=== PATIENT | male | born 1945 | race Caucasian/White ===

== ENCOUNTER 2017-05-23 21:44 | Observation (INO) | payer MEDICARE ==
[~2017-05-23] VITALS: Ht 172.7 cm; Wt 97.3 kg
[2017-05-23 21:55] VITALS: PULSE 91; RESP 16; TEMP 97.8; O2SAT 99
--- NOTE | 2017-05-23 21:59 | PD ---
HPI Chief Complaint: Altered Mental Status Time Seen by Provider: 21:59 Travel History International Travel<30 days: No Contact w/Intl Traveler<30days: No Traveled to known affect area: No History of Present Illness HPI 71-year-old male with history of remote CVA, diabetes, presents to emergency department for evaluation of altered mental status. Per his , the patient had a normal day. The right eating dinner and the patient had a large amount of seafood to eat. He has never had any sensitivities in the past. He took his no full length, metformin, glipizide prior to dinner as he always does. She states around 8 PM, the patient began acting very bizarre. He then progressed and began having jerking-like movements with his head. She states patient has never acted like this before. Denies any alcohol or illicit drug use. No other symptoms reported this time. PFSH Past Medical History Cerebrovascular Accident: Yes Diabetes: Yes Social History Tobacco Use: No Allergies-Medications (Allergen,Severity, Reaction): Coded Allergies: Cipro (Verified Allergy, Unknown, 05/23/17) Levaquin (Verified Allergy, Unknown, 05/23/17) Reported Meds & Prescriptions Reported Meds & Active Scripts Active Reported Cilostazol 50 Mg Tab 50 Mg PO DAILY Aspirin 81 Mg Chew 81 Mg CHEW DAILY Novolin R Inj (Insulin Human Regular) 1,000 Unit/10 Ml Vial 33 Units SQ BID Furosemide 20 Mg Tab 20 Mg PO DAILY PRN Omeprazole 20 Mg Tab 20 Mg PO DAILY Metformin (Metformin HCl) 1,000 Mg Tab 1,000 Mg PO BIDPC With meals Glipizide 5 Mg Tab 5 Mg PO BIDAC Take 30 minutes before a meal Gabapentin 300 Mg Cap 300 Mg PO BID Metoprolol Tartrate 25 Mg Tab 12.5 Mg PO BID Atorvastatin (Atorvastatin Calcium) 20 Mg Tab 20 Mg PO HS Terazosin (Terazosin HCl) 2 Mg Cap 2 Mg PO HS Review of Systems ROS Limitations: Altered Mental Status Except as stated in HPI: all other systems reviewed are Neg Physical Exam Exam Limitations: Altered Mental Status Narrative GENERAL: Well-nourished elderly male patient, uncooperative, disoriented SKIN: Focused skin assessment warm, diaphoretic HEAD: Atraumatic. Normocephalic. EYES: Pupils equal and round. No scleral icterus. No injection or drainage. ENT: No nasal bleeding or discharge. Mucous membranes pink and moist. NECK: Trachea midline. No JVD. CARDIOVASCULAR: Regular rate and rhythm. No murmur appreciated. RESPIRATORY: No accessory muscle use. Clear to auscultation. Breath sounds equal bilaterally. GASTROINTESTINAL: Abdomen soft, non-tender, nondistended. Hepatic and splenic margins not palpable. MUSCULOSKELETAL: No obvious deformities. No clubbing. No cyanosis. No edema. NEUROLOGICAL: Awake. Unable to assess cranial nerves. Patient is moving all extremities in jerk-like motion. Data Data Last Documented VS Vital Signs Date Time Temp Pulse Resp B/P Pulse Ox O2 Delivery O2 Flow Rate FiO2 05/23/17 21:55 97.8 91 16 99 Orders Electrocardiogram (05/23/17 21:53) Basic Metabolic Panel (Bmp) (05/23/17 21:53) Complete Blood Count With Diff (05/23/17 21:53) Prothrombin Time / Inr (Pt) (05/23/17 21:53) Act Partial Throm Time (Ptt) (05/23/17 21:53) Thyroid Stimulating Hormone (05/23/17 21:53) Urinalysis - C+S If Indicated (05/23/17 21:53) Chest, Single Ap (05/23/17 21:53) Ct Brain W/O Iv Contrast(Rout) (05/23/17 21:53) Blood Glucose (05/23/17 21:53) Ecg Monitoring (05/23/17 21:53) Iv Access Insert/Monitor (05/23/17 21:53) Oximetry (05/23/17 21:53) Sodium Chloride 0.9% Flush (Ns Flush) (05/23/17 22:00) Drug Screen, Random Urine (05/23/17 21:53) Alcohol (Ethanol) (05/23/17 21:53) Blood Glucose (05/23/17 21:56) Dextrose 50% In Yung (Syr) Inj (D50w (Syr (05/23/17 22:00) Dextrose 50% In Yung (Syr) Inj (D50w (Syr (05/23/17 22:00) MDM Medical Decision Making Medical Screen Exam Complete: Yes Emergency Medical Condition: Yes Medical Record Reviewed: Yes Differential Diagnosis ICH versus electrolyte abnormality versus seizure versus sepsis Narrative Course 71-year-old male presents to emergency department for evaluation of altered mental status. Blood glucose was initially noted at 35. My attending physician , Dr. Moeller is at bedside. Patient is given to complete vials of D50. Within minutes after administration, patient begins to be more oriented. He is able to tell us his name. He is following simple commands. Last Impressions Head CT 05/23/172152 Signed Impressions: Service Date/Time: Tuesday, May 23, 2017 22:14 - CONCLUSION: 1. Focal area of decreased attenuation in the right parietal lobe which is nonspecific. This could be related to remote trauma. Edema or mass is less likely. 2. Opacification of mastoid air cells bilaterally right greater than left. 3. Small paul hole in right parietal bone. 4. Comparison with any old outside studies would be helpful. Sebastian Ortega MD Chest X-Ray 05/23/172152 Signed Impressions: Service Date/Time: Tuesday, May 23, 2017 21:54 - CONCLUSION: No acute disease. Sebastian Ortega MD Lab work is still pending. Patient will be observed for at least the next 3 hours with serial blood glucose checks. 2300 patient is signed out to my attending physician Dr. Moeller. She will assume care at this time. Diagnosis Primary Impression: Altered mental status Qualified Code: R41.82 - Altered mental status, unspecified altered mental status type Additional Impression: Hypoglycemia Condition: Stable Connie Miranda SOTO May 23, 2017 21:59
[2017-05-23] MEDS ORDERED: DEXTROSE 50% IN WATER 50 ML SYRINGE IV ONE (22:00)
[2017-05-23] MEDS ORDERED: SODIUM CHLORIDE 0.9% FLUSH 5 ML FLUSH IV FLUSH PRN (22:00)
[2017-05-23] MEDS ORDERED: GLIP5TAB8 PO (22:15)
[2017-05-23] MEDS ORDERED: TERA2CAP3 PO (22:15)
[2017-05-23] MEDS ORDERED: METF1000 PO (22:15)
[2017-05-23] MEDS ORDERED: OMEP20TA PO (22:15)
[2017-05-23] MEDS ORDERED: METO25TA3 PO (22:15)
[2017-05-23] MEDS ORDERED: NOVORP2 SQ (22:15)
[2017-05-23] MEDS ORDERED: ATOR20TA15 PO (22:15)
[2017-05-23] MEDS ORDERED: CILO50TA PO (22:15)
[2017-05-23] MEDS ORDERED: GABA300C5 PO (22:15)
[2017-05-23] MEDS ORDERED: FURO20TA PO (22:15)
[2017-05-23] MEDS ORDERED: ASPI81CH CHEW (22:15)
--- NOTE | 2017-05-23 22:16 | PD ---
Physical Exam Date Seen by Provider: May 23, 2017 Time Seen by Provider: 22:13 Narrative 71-year-old male was brought in by his to the emergency room for altered mental status. He was brought in emergently to the room. As per the she saw him normal up until 8 PM when they were eating dinner. And then he started to act very bizarre. Here he was not making any sense and not answering questions appropriately. He was kind of ataxic as he was being moved up from the wheelchair into the stretcher. It almost seems like he was starting to have a seizure. He was diaphoretic. Patient does have history of diabetes and took all his insulin shots before going for the dinner. As per the he ate quite a bit of shellfish which she has done in the past. Bedside sugar was 35. I ordered 2 A of D50 which were emergently given and as soon as the 2 g finished patient was fully conscious and answering questions appropriately. I will just told that the repeat blood sugar after 20 minutes was 230. Patient is getting rest of his workup including CAT scan for altered mental status. The nurse practitioner is following up the case and I'm supervising her. Data Data Last Documented VS Vital Signs Date Time Temp Pulse Resp B/P Pulse Ox O2 Delivery O2 Flow Rate FiO2 05/23/17 23:23 87 16 113/75 94 Nasal Cannula 2 05/23/17 21:55 97.8 Orders Electrocardiogram (05/23/17 21:53) Basic Metabolic Panel (Bmp) (05/23/17 21:53) Complete Blood Count With Diff (05/23/17 21:53) Prothrombin Time / Inr (Pt) (05/23/17 21:53) Act Partial Throm Time (Ptt) (05/23/17 21:53) Thyroid Stimulating Hormone (05/23/17 21:53) Urinalysis - C+S If Indicated (05/23/17 21:53) Chest, Single Ap (05/23/17 21:53) Ct Brain W/O Iv Contrast(Rout) (05/23/17 21:53) Blood Glucose (05/23/17 21:53) Ecg Monitoring (05/23/17 21:53) Iv Access Insert/Monitor (05/23/17 21:53) Oximetry (05/23/17 21:53) Sodium Chloride 0.9% Flush (Ns Flush) (05/23/17 22:00) Drug Screen, Random Urine (05/23/17 21:53) Alcohol (Ethanol) (05/23/17 21:53) Blood Glucose (05/23/17 21:56) Dextrose 50% In Yung (Syr) Inj (D50w (Syr (05/23/17 22:00) Dextrose 50% In Yung (Syr) Inj (D50w (Syr (05/23/17 22:00) Protein Corrected Calcium(Pcc) (05/23/17 22:30) Potassium Chloride (Kcl) (05/23/17 23:15) Urine Culture (05/23/17 23:10) Ceftriaxone Inj (Rocephin Inj) (05/24/17 00:30) Blood Culture (05/24/17 00:20) Lactic Acid (05/24/17 00:20) Sodium Chlor 0.9% 1000 Ml Inj (Ns 1000 M (05/24/17 00:30) Potassium Chlor 20 Meq Premix (Kcl 20 Me (05/24/17 00:30) Potassium Chloride (Kcl) (05/24/17 00:30) Calcium Gluconate Inj (Calcium Gluconate (05/24/17 00:30) Magnesium (Mg) (05/24/17 00:20) Magnesium Oxide (Mag-Ox) (05/24/17 00:30) Calcium Carbonate Chew (Tums Chew) (05/24/17 00:30) Admit Order (Ed Use Only) (05/24/17 00:32) Labs Laboratory Tests Test 05/23/17 05/23/17 05/24/17 22:30 23:10 00:30 Prothrombin Time 10.5 SEC Prothromb Time International 1.0 RATIO Ratio Activated Partial 25.9 SEC Thromboplast Time Sodium Level 144 MEQ/L Potassium Level 2.7 MEQ/L Chloride Level 115 MEQ/L Carbon Dioxide Level 19.7 MEQ/L Anion Gap 9 MEQ/L Blood Urea Nitrogen 19 MG/DL Creatinine 1.24 MG/DL Estimat Glomerular Filtration 58 ML/MIN Rate Random Glucose 262 MG/DL Calcium Level 6.1 MG/DL Protein Corrected Calcium 7.2 MG/DL Total Protein 4.7 GM/DL Thyroid Stimulating Hormone 1.240 uIU/ML 3rd Gen Ethyl Alcohol Level LESS THAN 3 MG/DL Hemoglobin A1c 7.0 % Magnesium Level 1.3 MG/DL White Blood Count 10.2 TH/MM3 Red Blood Count 4.98 MIL/MM3 Hemoglobin 14.1 GM/DL Hematocrit 42.2 % Mean Corpuscular Volume 84.8 FL Mean Corpuscular Hemoglobin 28.3 PG Mean Corpuscular Hemoglobin 33.4 % Concent Red Cell Distribution Width 13.7 % Platelet Count 158 TH/MM3 Mean Platelet Volume 9.5 FL Neutrophils (%) (Auto) 51.1 % Lymphocytes (%) (Auto) 30.0 % Monocytes (%) (Auto) 8.8 % Eosinophils (%) (Auto) 9.5 % Basophils (%) (Auto) 0.6 % Neutrophils # (Auto) 5.2 TH/MM3 Lymphocytes # (Auto) 3.0 TH/MM3 Monocytes # (Auto) 0.9 TH/MM3 Eosinophils # (Auto) 1.0 TH/MM3 Basophils # (Auto) 0.1 TH/MM3 CBC Comment DIFF FINAL Differential Comment Urine Opiates Screen NEG Urine Barbiturates Screen NEG Urine Amphetamines Screen NEG Urine Benzodiazepines Screen NEG Urine Cocaine Screen NEG Urine Cannabinoids Screen NEG Urine Color YELLOW Urine Turbidity HAZY Urine pH 5.0 Urine Specific [place] 1.021 Urine Protein TRACE mg/dL Urine Glucose (UA) 1000 mg/dL Urine Ketones NEG mg/dL Urine Occult Blood SMALL Urine Nitrite NEG Urine Bilirubin NEG Urine Urobilinogen LESS THAN 2.0 MG/DL Urine Leukocyte Esterase LARGE Urine RBC 6 /hpf Urine WBC 121 /hpf Urine WBC Clumps RARE Urine Squamous Epithelial <1 /hpf Cells Urine Bacteria RARE /hpf Microscopic Urinalysis Comment CATH-CULTURE IND Lactic Acid Level 1.7 mmol/L [facility] Supervised Visit with LINDSEY: Yes Narrative Course 12:33 AM subsequent blood sugars have remained above 150. However blood test results came back and his potassium and calcium were critically low. I have ordered for placement. But given this scenario along with his UA strongly positive for UTI I would like to bring this patient in at least for observation. I have ordered a second liter of IV fluid bolus and IV Rocephin. I spoke with the hospitalist was accepted the case. Critical Care Narrative Aggregate critical care time was 45 minutes. Time to perform other separately billable procedures was not included in the critical care time. My time did not include minutes spent treating any other patients simultaneously or on activities that did not directly contribute to the patient's treatment. The services I provided to this patient were to treat and/or prevent clinically significant deterioration that could result in: Altered mental status, severe hypo-glycemia, severe hypocalcemia, hypokalemia I provided critical care services requiring my management, as noted below: Chart data review, documentation time, medication orders and management, vital sign assessments/reviewing monitor data, ordering and reviewing lab tests, ordering and interpreting/reviewing x-rays and diagnostic studies, care of the patient and discussion of the patient with the admitting physicians. Diagnosis Primary Impression: Altered mental status Qualified Code: R41.82 - Altered mental status, unspecified altered mental status type Additional Impressions: Hypoglycemia Hypocalcemia Hypokalemia UTI (urinary tract infection) Qualified Code: N39.0 - Urinary tract infection without hematuria, site unspecified Admitting Information Admitting Physician Requests: Observation Scripts Insulin Human Regular Inj (Novolin R Inj)1,000 Unit/10 Ml Vial15 Units SQ BID # 1 INJECTION Ref 0 Prov:Angelica Murray PA-C 05/24/17 Glucocom Test Strips 1 Alison Alison #1 Ea .route As Directed Prov:Angelica Murray PA-C 05/24/17 Blood Glucose Monitoring W/Device (Glucocom Blood Glucose Mo W/Device)1 Kit Kit #1 Kit .route As Directed Prov:Angelica Murray PA-C 05/24/17 Sulfamethoxazole-Trimethoprim (Bactrim DS)800-160 Mg Tab1 Tab PO BID #14 TAB Ref 0 Prov:Angelica Murray PA-C 05/24/17 Gladis Moeller MD May 23, 2017 22:16
--- NOTE | 2017-05-23 22:26 | RADRPT ---
EXAM DATE/TIME: 05/23/2017 21:54 [facility] COMPARISON: No previous studies available for comparison. INDICATIONS : Syncopal episode today. Possible low blood sugar. MEDICAL HISTORY : Diabetes mellitus type II. Hypertension SURGICAL HISTORY : Cardiac stent. ENCOUNTER: Initial ACUITY: 1 day PAIN SCORE: 0/10 LOCATION: Bilateral chest FINDINGS: A single view of the chest demonstrates the lungs to be symmetrically aerated without evidence of mas s, infiltrate or effusion. The cardiomediastinal contours are unremarkable. Osseous structures are intact.CONCLUSION: No acute disease. Sebastian Ortega MD on May 23, 2017 at 22:24 Board Certified Radiologist. This report was verified electronically.
--- NOTE | 2017-05-23 22:30 | RADRPT ---
EXAM DATE/TIME: 05/23/2017 22:14 [facility] COMPARISON: No previous studies available for comparison. INDICATIONS : Altered mental status, diaphoretic. RADIATION DOSE: 39.39 CTDIvol (mGy) MEDICAL HISTORY : Bladder cancer. Subdural bleed. Diabetes. SURGICAL HISTORY : Cardiac stent. Bladder surgery. ENCOUNTER: Initial ACUITY: 1 day PAIN SCALE: 0/10 LOCATION: cranial TECHNIQUE: Multiple contiguous axial images were obtained of the head. Using automated exposure control and adj ustment of the mA and/or kV according to patient size, radiation dose was kept as low as reasonably a chievable to obtain optimal diagnostic quality images. DICOM format image data is available electro nically for review and comparison. FINDINGS: CEREBRUM: The ventricles are normal for age. No evidence of midline shift, mass lesion, hemorrhage or acute in farction. There is a subtle focal area of decreased attenuation in the right parietal lobe measuring approximately 1.5 cm in diameter. No extra-axial fluid collections are seen. POSTERIOR FOSSA: The cerebellum and brainstem are intact. The 4th ventricle is midline. The cerebellopontine angle i s unremarkable. EXTRACRANIAL: The visualized portion of the orbits is intact. There is opacification of the mastoid air cells bilat erally right greater than left. SKULL: The calvaria is intact. No evidence of skull fracture. Postsurgical changes are noted with paul hole in the right parietal lobe. CONCLUSION: 1. Focal area of decreased attenuation in the right parietal lobe which is nonspecific. This could be related to remote trauma. Edema or mass is less likely. 2. Opacification of mastoid air cells bilaterally right greater than left. 3. Small paul hole in right parietal bone. 4. Comparison with any old outside studies would be helpful. Sebastian Ortega MD on May 23, 2017 at 22:25 Board Certified Radiologist. This report was verified electronically.
[2017-05-23 23:09] LABS: AUTOMATED NEUTROPHIL # 5.2 TH/MM3 (1.8-7.7); BASOPHIL # 0.1 TH/MM3 (0-0.2); BASOPHIL % 0.6 % (0.0-2.0); EOSINOPHIL % 9.5 % (0.0-4.0); HEMATOCRIT 42.2 % (39.0-51.0); HEMO FLAGS DIFF FINAL; MEAN CELL VOLUME 84.8 FL (80.0-100.0); MEAN CORPUSCULAR HEMOGLOBIN 28.3 PG (27.0-34.0); MEAN CORPUSCULAR HGB CONC 33.4 % (32.0-36.0); MONO % 8.8 % (0.0-8.0); NEUT % 51.1 % (16.0-70.0); PLATELET COUNT 158 TH/MM3 (150-450); RED BLOOD COUNT 4.98 MIL/MM3 (4.50-5.90); RED CELL DISTRIBUTION WIDTH 13.7 % (11.6-17.2); WHITE BLOOD COUNT 10.2 TH/MM3 (4.0-11.0)
[2017-05-23 23:10] LABS: APTT (PATIENT) 25.9 SEC (24.3-30.1); PROTHROMBIN TIME - PATIENT 10.5 SEC (9.8-11.6)
[2017-05-23 23:13] LABS: ANION GAP 9 MEQ/L (5-15); BICARBONATE 19.7 MEQ/L (21.0-32.0); BLOOD UREA NITROGEN 19 MG/DL (7-18); CHLORIDE 115 MEQ/L (98-107); GLOMERULAR FILTRATION RATE 58 ML/MIN (>89); SODIUM (NA) 144 MEQ/L (136-145)
[2017-05-23 23:15] LABS: POTASSIUM 2.7 MEQ/L (3.5-5.1)
[2017-05-23] MEDS ORDERED: POTASSIUM CHLORIDE 10 MEQ CONTROLLED RELEASE TAB PO ONE (23:15)
[2017-05-23 23:23] VITALS: BP 113/75; PULSE 87; RESP 16; O2SAT 94
[2017-05-23 23:31] LABS: CALCIUM-PROTEIN CORRECTED 7.2 MG/DL (8.5-10.1)
[2017-05-24 00:03] LABS: AMPHETAMINE, URINE NEG (NEG); BACTERIA, URINE RARE /hpf; BARBITURATES, URINE NEG (NEG); BLOOD, URINE SMALL (NEG); COCAINE, URINE NEG (NEG); COMMENT (UR) CATH-CULTURE IND; CULTURE IF INDICATED CATH CULTURE IND; GLUCOSE,URINE 1000 mg/dL (NEG); KETONE, URINE NEG (NEG); NITRITE,URINE NEG (NEG); SQUAMOUS EPITHELIAL CELL URINE <1 /hpf (0-5); URINE COLOR YELLOW (YELLW/STRAW)
[2017-05-24] MEDS ORDERED: SODIUM CHLOR 0.9% 1000 ML INJ 1,000 ML IV ONE (00:30)
[2017-05-24] MEDS ORDERED: CALCIUM CARBONATE 500 MG CHEWABLE TAB CHEW ONE (00:30)
[2017-05-24] MEDS ORDERED: POTASSIUM CHLOR 20 MEQ PREMIX 100 ML IV ONE (00:30)
[2017-05-24] MEDS ORDERED: cefTRIAXone INJ 1,000 MG in SODIUM CHLORIDE 0.9% INJ 100 ML IV ONE (00:30)
[2017-05-24] MEDS ORDERED: POTASSIUM CHLORIDE 20 MEQ CONTROLLED RELEASE TAB PO ONE (00:30)
[2017-05-24] MEDS ORDERED: CALCIUM GLUCONATE INJ 1 GM in SODIUM CHLORIDE 0.9% INJ 90 ML IV ONE (00:30)
[2017-05-24] MEDS ORDERED: MAGNESIUM OXIDE 400 MG TAB PO ONE ×2 (00:30→08:00)
[2017-05-24] MEDS ORDERED: BISACODYL 10 MG SUPP RECTAL PRN (00:45)
[2017-05-24] MEDS ORDERED: SENNOSIDES 8.6 MG TAB PO PRN (00:45)
[2017-05-24] MEDS ORDERED: GLUCAGON 1 MG/ML VIAL OTHER PRN (00:45)
[2017-05-24] MEDS ORDERED: MAGNESIUM HYDROXIDE SUSP 30 ML CUP PO PRN (00:45)
[2017-05-24] MEDS ORDERED: LACTULOSE SYRUP 20 GM/30 ML CUP PO PRN (00:45)
[2017-05-24] MEDS ORDERED: NALOXONE HCL 0.4 MG/ML AMP IV PRN (00:45)
[2017-05-24] MEDS ORDERED: DEXTROSE 50% IN WATER 50 ML VIAL(D50) IV PRN (00:45)
--- NOTE | 2017-05-24 00:52 | HHI.HP ---
[facility] Admission Diagnosis hypoglycemia, AMS, hypocalcemia, hypokalemia Diagnoses: Chief Complaint: hypoglycemia Travel History International Travel<30 Days: No Contact w/Intl Traveler <30 Da: No Traveled to Known Affected Are: No History of Present Illness Written by SOTO Gaxiola acting as scribe for Dr. Villalobos] on 05/24/17 at 00:50. 71 y/o male with a history of subdural hematoma, bladder cancer dyslipidemia, neuropathy, and DM was brought to the ED by family for having abnormal behavior. Patient states he drove from [place] today and didn't eat much, he had some peanuts because he felt his sugar was low. Then he ate dinner but still felt weak and according to the when they got home the patient begin to act weird and some crazy behavior. In the ED blood sugar was found to be 35, 2 amps of d5 were given. Patient states he did remember having trouble reading his phone today, but does not remember being brought to the hospital. He denies any double vision. Denies any chest pain, sob, fever or chills. Review of Systems Constitutional: DENIES: Fever, Chills Respiratory: DENIES: Cough, Sputum production, Shortness of breath Cardiovascular: DENIES: Chest pain, Lower Extremity Edema Gastrointestinal: DENIES: Nausea, Vomiting Genitourinary: DENIES: Hematuria, Dysuria Musculoskeletal: DENIES: Back pain, Neck pain Integumentary: DENIES: Rash Hematologic/lymphatic: DENIES: Lymphadenopathy Immunologic/allergic: DENIES: Urticaria Neurologic: COMPLAINS OF: Headache Past Family Social History Past Medical History DM Bladder cancer reoccurring Subdural hematoma 2015 HTN Dyslipidemia neuropathy Past Surgical History Cardiac stents Reported Medications Reported Meds & Active Scripts Active Reported Cilostazol 50 Mg Tab 50 Mg PO DAILY Aspirin 81 Mg Chew 81 Mg CHEW DAILY Novolin R Inj (Insulin Human Regular) 1,000 Unit/10 Ml Vial 33 Units SQ BID Furosemide 20 Mg Tab 20 Mg PO DAILY PRN Omeprazole 20 Mg Tab 20 Mg PO DAILY Metformin (Metformin HCl) 1,000 Mg Tab 1,000 Mg PO BIDPC With meals Glipizide 5 Mg Tab 5 Mg PO BIDAC Take 30 minutes before a meal Gabapentin 300 Mg Cap 300 Mg PO BID Metoprolol Tartrate 25 Mg Tab 12.5 Mg PO BID Atorvastatin (Atorvastatin Calcium) 20 Mg Tab 20 Mg PO HS Terazosin (Terazosin HCl) 2 Mg Cap 2 Mg PO HS Allergies: Coded Allergies: Cipro (Verified Allergy, Unknown, 05/23/17) Levaquin (Verified Allergy, Unknown, 05/23/17) Active Ordered Medications Current Medications Medications (Trade) Dose Ordered Sig/Norberto Route Start Time Stop Time Status Last Admin IV Flush 2 ml 2 ml UNSCH PRN IV FLUSH 05/23/17 22:00 05/23/17 22:07 Ceftriaxone Sodium 1000 mg/ Sodium Chloride 100 ml @ 200 mls/hr ONCE ONCE IV 05/24/17 00:30 05/24/17 00:59 Sodium Chloride 1,000 ml @ 999 mls/hr BOLUS ONCE IV 05/24/17 00:30 05/24/17 01:30 Potassium Chloride 100 ml @ 50 mls/hr ONCE ONCE IV 05/24/17 00:30 05/24/17 02:29 Calcium Gluconate 1 gm/Sodium Chloride 100 ml @ 100 mls/hr ONCE ONCE IV 05/24/17 00:30 05/24/17 01:29 (D5-1/2 NS + KCl 20 Meq Inj) 1,000 ml @ 100 mls/hr Q10H IV 05/24/17 03:33 (Narcan Inj) 0.4 mg UNSCH PRN IV 05/24/17 00:45 (Kristal-Colace) 1 tab BID PO 05/24/17 09:00 (Milk Of Magnesia Liq) 30 ml Q12H PRN PO 05/24/17 00:45 (Senokot) 17.2 mg Q12H PRN PO 05/24/17 00:45 (Dulcolax Supp) 10 mg DAILY PRN RECTAL 05/24/17 00:45 (Lactulose Liq) 30 ml DAILY PRN PO 05/24/17 00:45 (D50w (Vial) Inj) 50 ml UNSCH PRN IV 05/24/17 00:45 Glucagon 1 mg 1 mg UNSCH PRN OTHER 05/24/17 00:45 (Rocephin Inj/NS Inj) 100 ml @ 200 mls/hr Q24H IV 05/25/17 01:00 Family History Mom: [place] Dad: [place], at age 41 Social History Tobacco use: Quit 40 years Alcohol use: Denies Illicit drug use: Denies Physical Exam Vital Signs Vital Signs Date Time Temp Pulse Resp B/P Pulse Ox O2 Delivery O2 Flow Rate FiO2 05/23/17 23:23 87 16 113/75 94 Nasal Cannula 2 05/23/17 21:55 97.8 91 16 99 Physical Exam GENERAL: This is a well-nourished, well-developed patient, in no apparent distress. SKIN: No rashes, ecchymoses or lesions. Cool and dry. HEAD: Atraumatic. Normocephalic. No temporal or scalp tenderness. EYES: Pupils equal round and reactive. Extraocular motions intact. No scleral icterus. No injection or drainage. ENT: Nose without bleeding, purulent drainage or septal hematoma. Throat without erythema, tonsillar hypertrophy or exudate. Uvula midline. Airway patent. NECK: Trachea midline. No JVD or lymphadenopathy. Supple, nontender, no meningeal signs. CARDIOVASCULAR: Regular rate and rhythm without murmurs, gallops, or rubs. RESPIRATORY: Clear to auscultation. Breath sounds equal bilaterally. No wheezes , rales, or rhonchi. GASTROINTESTINAL: Abdomen soft, non-tender, nondistended. No hepato-splenomegaly , or palpable masses. No guarding. MUSCULOSKELETAL: Extremities without clubbing, cyanosis, or edema. No joint tenderness, effusion, or edema noted. No calf tenderness. NEUROLOGICAL: Awake and alert. Motor and sensory grossly within normal limits. Normal speech. Laboratory Laboratory Tests Test 05/23/17 05/23/17 22:30 23:10 Prothrombin Time 10.5 Prothromb Time International 1.0 Ratio Activated Partial 25.9 Thromboplast Time Sodium Level 144 Potassium Level 2.7 Chloride Level 115 Carbon Dioxide Level 19.7 Anion Gap 9 Blood Urea Nitrogen 19 Creatinine 1.24 Estimat Glomerular Filtration 58 Rate Random Glucose 262 Calcium Level 6.1 Protein Corrected Calcium 7.2 Total Protein 4.7 Thyroid Stimulating Hormone 1.240 3rd Gen Ethyl Alcohol Level LESS THAN 3 White Blood Count 10.2 Red Blood Count 4.98 Hemoglobin 14.1 Hematocrit 42.2 Mean Corpuscular Volume 84.8 Mean Corpuscular Hemoglobin 28.3 Mean Corpuscular Hemoglobin 33.4 Concent Red Cell Distribution Width 13.7 Platelet Count 158 Mean Platelet Volume 9.5 Neutrophils (%) (Auto) 51.1 Lymphocytes (%) (Auto) 30.0 Monocytes (%) (Auto) 8.8 Eosinophils (%) (Auto) 9.5 Basophils (%) (Auto) 0.6 Neutrophils # (Auto) 5.2 Lymphocytes # (Auto) 3.0 Monocytes # (Auto) 0.9 Eosinophils # (Auto) 1.0 Basophils # (Auto) 0.1 CBC Comment DIFF FINAL Differential Comment Urine Color YELLOW Urine Turbidity HAZY Urine pH 5.0 Urine Specific [place] 1.021 Urine Protein TRACE Urine Glucose (UA) 1000 Urine Ketones NEG Urine Occult Blood SMALL Urine Nitrite NEG Urine Bilirubin NEG Urine Urobilinogen LESS THAN 2.0 Urine Leukocyte Esterase LARGE Urine RBC 6 Urine WBC 121 Urine WBC Clumps RARE Urine Squamous Epithelial <1 Cells Urine Bacteria RARE Microscopic Urinalysis Comment CATH-CULTURE IND Urine Opiates Screen NEG Urine Barbiturates Screen NEG Urine Amphetamines Screen NEG Urine Benzodiazepines Screen NEG Urine Cocaine Screen NEG Urine Cannabinoids Screen NEG Date/Time Procedure Status Source Growth 05/24/17 00:35 Aerobic Blood Culture Received Blood Peripheral Pending 05/24/17 00:35 Anaerobic Blood Culture Received Blood Peripheral Pending 05/23/17 23:10 Urine Culture Received Urine Clean Catch Pending Result Diagram: 05/23/17222905/23/170 Imaging Last Impressions Head CT 05/23/172152 Signed Impressions: Service Date/Time: Tuesday, May 23, 2017 22:14 - CONCLUSION: 1. Focal area of decreased attenuation in the right parietal lobe which is nonspecific. This could be related to remote trauma. Edema or mass is less likely. 2. Opacification of mastoid air cells bilaterally right greater than left. 3. Small paul hole in right parietal bone. 4. Comparison with any old outside studies would be helpful. Sebastian Ortega MD Chest X-Ray 05/23/172152 Signed Impressions: Service Date/Time: Tuesday, May 23, 2017 21:54 - CONCLUSION: No acute disease. Sebastian Ortega MD Assessment and Plan Problem List: (1) Hypoglycemia ICD Code: E16.2 Status: Acute (2) UTI (urinary tract infection) ICD Code: N39.0 Status: Acute (3) Hypokalemia ICD Code: E87.6 Status: Acute (4) Hypocalcemia ICD Code: E83.51 Status: Acute Assessment and Plan 71 y/o male with a history of subdural hematoma, bladder cancer dyslipidemia, neuropathy, and DM was brought to the ED by family for having abnormal behavior. Hypoglycemia, patient arrived with blood sugar of 35, resolved after 2 amps of d5 -Accu checks, hold home insulin for now -Neuro checks UTI, UA abnormal, no leukocytosis -Rocephin IV -IVF for hydration D5 1/2NS 20K -Urine culture pending Hypokalemia and hypocalcemia Potassium 2.6, calcium 6.1 -supplementation given -BMP in AM DVT prophylaxis: SCDs This note was transcribed by pacheco Tatum. I, Dr. Vik Urbano personally performed the history, physical exam, and medical decision making; and confirmed the accuracy of the information in the transcribed note. Authenticated by Dr. Vik Urbano on 05/24/17 at 04:08. Discussed Condition With Patient and family Problem Qualifiers (1) UTI (urinary tract infection): Qualified Code: N39.0 - Urinary tract infection without hematuria, site unspecified Nidhi Tatum May 24, 2017 00:52 Vik Urbano MD May 24, 2017 04:08
[2017-05-24] MEDS ORDERED: D5-1/2 NS + KCL 20 MEQ INJ 1,000 ML IV SCH (03:33)
[2017-05-24 04:34] VITALS: BP 154/74; PULSE 75; RESP 18; TEMP 97.5; O2SAT 92
[2017-05-24 05:01] VITALS: PULSE 76
[2017-05-24 06:03] LABS: BICARBONATE 22.5 MEQ/L (21.0-32.0); MAGNESIUM 1.8 MG/DL (1.5-2.5); POTASSIUM 4.1 MEQ/L (3.5-5.1)
[2017-05-24 07:36] VITALS: PULSE 67
[2017-05-24 08:00] VITALS: BP 166/84; PULSE 76; RESP 18; TEMP 97.9; O2SAT 95
[2017-05-24] MEDS ORDERED: PILL SPLITTER OTHER PRN (08:00)
[2017-05-24] MEDS ORDERED: METOPROLOL TARTRATE 25 MG TAB PO SCH (09:00)
[2017-05-24] MEDS ORDERED: GABAPENTIN 300 MG CAP PO SCH (09:00)
[2017-05-24] MEDS ORDERED: ASPIRIN 81 MG CHEW TAB CHEW SCH (09:00)
[2017-05-24] MEDS ORDERED: PANTOPRAZOLE SOD 20 MG DELAYED RELEASE TAB PO SCH (09:00)
[2017-05-24] MEDS ORDERED: CILOSTAZOL 50 MG TAB PO SCH (09:00)
[2017-05-24] MEDS: DOCUSATE SODIUM 50 MG/SENNA 8.6 MG TAB PO SCH ×2 (09:00→11:51)
--- NOTE | 2017-05-24 09:36 | HHI.PR ---
Subjective Remarks Follow up for hypoglycemia. The patient reports feeling back to normal today. Denies any more confusion or lightheadedness. Blood sugars improving, 89 and 110 this morning. He wants to go home tha. Explained would like to monitor blood sugars off IV fluids throughout today, patient is agreeable. Of note, patient has lost 10lbs in the past 2 weeks intentionally. The last time his insulin was adjust was back in March when his PCP increased his regular insulin from 30u bid to 33u bid. His blood sugars have been around 100-110 over the past 1-2 weeks. The patient admits that he did not eat much yesterday since he drove down from [place] and ended up having a very late lunch/early dinner. He otherwise denies any other recent nausea/vomiting/diarrhea. He reports being on lasix as needed for leg swelling but hasn't taken this in weeks. Objective Vitals Vital Signs Date Time Temp Pulse Resp B/P Pulse Ox O2 Delivery O2 Flow Rate FiO2 05/24/17 08:00 97.9 76 18 166/84 95 05/24/17 07:36 67 05/24/17 05:01 76 05/24/17 04:34 97.5 75 18 154/74 92 05/23/17 23:23 87 16 113/75 94 Nasal Cannula 2 05/23/17 21:55 97.8 91 16 99 Result Diagram: 05/23/170 05/24/17 0458 Imaging Last Impressions Head CT 05/23/172152 Signed Impressions: Service Date/Time: Tuesday, May 23, 2017 22:14 - CONCLUSION: 1. Focal area of decreased attenuation in the right parietal lobe which is nonspecific. This could be related to remote trauma. Edema or mass is less likely. 2. Opacification of mastoid air cells bilaterally right greater than left. 3. Small paul hole in right parietal bone. 4. Comparison with any old outside studies would be helpful. Sebastian Ortega MD Chest X-Ray 05/23/172152 Signed Impressions: Service Date/Time: Tuesday, May 23, 2017 21:54 - CONCLUSION: No acute disease. Sebastian Ortega MD Objective Remarks GENERAL: Well-nourished, well-developed pleasant male patient in [facility]. SKIN: Warm and dry. No rash. HEENT: Normocephalic. Atraumatic. Pupils equal and round. Mucous membranes pink and moist. NECK: Supple. Trachea midline. CARDIOVASCULAR: Regular rate and rhythm. S1, S2 noted. No murmur appreciated. RESPIRATORY: No accessory muscle use. Clear to auscultation. Breath sounds equal bilaterally. GASTROINTESTINAL: Abdomen soft, non-tender, nondistended. Normoactive bowel sounds x4. MUSCULOSKELETAL: No obvious deformities. Extremities without clubbing, cyanosis , or edema. NEUROLOGICAL: Awake and alert. No obvious cranial nerve deficits. Motor grossly within normal limits. Normal speech. PSYCHIATRIC: Appropriate mood and affect; insight and judgment normal. Medications and IVs Current Medications Medications (Trade) Dose Ordered Sig/Norberto Route Start Time Stop Time Status Last Admin (NS Flush) 2 ml UNSCH PRN IV FLUSH 05/23/17 22:00 05/23/17 22:07 (Narcan Inj) 0.4 mg UNSCH PRN IV 05/24/17 00:45 (Kristal-Colace) 1 tab BID PO 05/24/17 09:00 (Milk Of Magnesia Liq) 30 ml Q12H PRN PO 05/24/17 00:45 (Senokot) 17.2 mg Q12H PRN PO 05/24/17 00:45 (Dulcolax Supp) 10 mg DAILY PRN RECTAL 05/24/17 00:45 (Lactulose Liq) 30 ml DAILY PRN PO 05/24/17 00:45 (D50w (Vial) Inj) 50 ml UNSCH PRN IV 05/24/17 00:45 Glucagon 1 mg 1 mg UNSCH PRN OTHER 05/24/17 00:45 (Rocephin Inj/NS Inj) 100 ml @ 200 mls/hr Q24H IV 05/25/17 01:00 (Aspirin Chew) 81 mg DAILY CHEW 05/24/17 09:00 (Lipitor) 20 mg HS PO 05/24/17 21:00 (Pletal) 50 mg DAILY PO 05/24/17 09:00 (Neurontin) 300 mg BID PO 05/24/17 09:00 (Lopressor) 12.5 mg BID PO 05/24/17 09:00 (Hytrin) 2 mg HS PO 05/24/17 21:00 (Protonix) 20 mg DAILY PO 05/24/17 09:00 (Pill Splitter) 1 ea UNSCH PRN OTHER 05/24/17 08:00 A/P Problem List: (1) Hypoglycemia ICD Code: E16.2 Status: Acute (2) UTI (urinary tract infection) ICD Code: N39.0 Status: Acute (3) Hypokalemia ICD Code: E87.6 Status: Acute (4) Hypocalcemia ICD Code: E83.51 Status: Acute Assessment and Plan 71 y/o male with a history of subdural hematoma, bladder cancer dyslipidemia, neuropathy, and DM was brought to the ED by family for having abnormal behavior. Hypoglycemia, patient arrived with blood sugar of 35, resolved after 2 amps of d5. Suspect hypoglycemia secondary to not eating regular meals yesterday while traveling, and with recent 10lbs weight loss and previously increased insulin -Accu checks, hold home insulin and oral hypoglycemics for now -Neuro checks -AMS resolved, patient back to baseline -had long discussion with patient and spouse, go back to previous dose of regular insulin 30u bid, and monitor blood sugars closely tidachs, record findings, and see PCP within 1 week after discharge -also educated on importance of regular meals and not skipping meals, patient verbalized understanding -also discussed talking to PCP about decreasing glipizide however patient hesitant to discontinue as he has been on this medication for many years without any problems -will discharge this afternoon if blood sugars >100 off IVF UTI, UA abnormal, no leukocytosis -given Rocephin IV -IVF for hydration D5 1/2NS 20K -Urine culture pending -will prescribe ceftin at discharge Hypokalemia and hypocalcemia: Potassium 2.6, calcium 6.1 -KCl and IV Calcium supplementation given -Repeat BMP shows much improvement with K 4.1, calcium 8.4 DVT prophylaxis: SCDs Discharge Planning Likely discharge today if blood sugars remain > 100. 1600hrs: Patient's blood glucose today 110 --> 215 --> 199. Discussed with Dr. Norton, recommends decreasing regular insulin in half from 33u bid to 15u bid. Discussed again with patient and . Will discharge home. Discharge patient to home Condition on discharge: Improved Diabetic Diet as tolerated Ad Debra activity Rx written: decreased patient's regular insulin dosing to 15u bid; gave rx for glucometer/test strips Follow-up with primary care physician within 1 week Problem Qualifiers (1) UTI (urinary tract infection): Qualified Code: N39.0 - Urinary tract infection without hematuria, site unspecified Angelica Murray PA-C May 24, 2017 09:36
[2017-05-24] MEDS ORDERED: NOVORP2 SQ ×2 (09:37→13:59)
--- NOTE | 2017-05-24 09:44 | HHI.DCPOC ---
Discharge Care Plan Diagnosis: (1) Hypoglycemia (2) Hypocalcemia (3) Hypokalemia (4) UTI (urinary tract infection) Goals to Promote Your Health * To prevent worsening of your condition and complications * To maintain your health at the optimal level Directions to Meet Your Goals Take your medications as prescribed Follow your dietary instruction Follow activity as directed Keep your appointments as scheduled Take your immunizations and boosters as scheduled If your symptoms worsen call your PCP, if no PCP go to Urgent Care Center or Emergency Room Smoking is Dangerous to Your Health. Avoid second hand smoke Call the 24-hour hour crisis hotline for domestic abuse at Angelica Murray PA-C May 24, 2017 9:44 am
[2017-05-24] MEDS ORDERED: BACT800T5 PO (09:48)
[2017-05-24 12:00] VITALS: BP 150/85; PULSE 64; RESP 18; TEMP 98; O2SAT 98
--- NOTE | 2017-05-24 13:39 | EKG ---
Date Performed: 05/23/2017 Time Performed: 21:56:14 PTAGE: 71 years EKG: Sinus rhythm WITH OCCASIONAL VENTRICULAR PREMATURE COMPLEXES POSSIBLE INFERIOR MYOCARDIAL INFARCTION NON-SPECIFIC ST/T WAVE CHANGES BORDERLINE ECG NO PREVIOUS TRACING DOCTOR: Jg Tirado Interpretating Date/Time 05/24/2017 13:39:10
[2017-05-24] MEDS ORDERED: GLUCTES12 (13:51)
[2017-05-24] MEDS ORDERED: GLUCKIT15 (13:51)
[2017-05-24] MEDS ORDERED: ATORVASTATIN 20 MG TAB PO SCH (21:00)
[2017-05-24] MEDS ORDERED: TERAZOSIN HCL 1 MG CAP PO SCH (21:00)
[2017-05-25] MEDS ORDERED: cefTRIAXone INJ 1,000 MG in SODIUM CHLORIDE 0.9% INJ 100 ML IV SCH (01:00)
== END 2017-05-24 16:31 | disposition home or self-care (01) ==
LOC: NEPE 21:44 → NEDA 05-24 00:33 → NEPFCDU 05-24 04:21
PROVIDERS: ADMIT Family Medicine; ATTEND Family Medicine
DX: E11.649 Type 2 diabetes mellitus with hypoglycemia without coma (principal); N39.0 Urinary tract infection, site not specified; E83.51 Hypocalcemia; R41.82 Altered mental status, unspecified; R61 Generalized hyperhidrosis; R27.0 Ataxia, unspecified; R93.0 Abnormal findings on diagnostic imaging of skull and head, not elsewhere classified; R55 Syncope and collapse; E87.6 Hypokalemia; R53.1 Weakness; I10 Essential (primary) hypertension; E78.5 Hyperlipidemia, unspecified; E11.40 Type 2 diabetes mellitus with diabetic neuropathy, unspecified; Z85.51 Personal history of malignant neoplasm of bladder; Z95.5 Presence of coronary angioplasty implant and graft; Z79.899 Other long term (current) drug therapy; Z87.891 Personal history of nicotine dependence; Z79.4 Long term (current) use of insulin
CPT/HCPCS: 70450; 71010; 80048; 80307; 81001; 82948; 83036; 83605; 83735; 84155; 84443; 85025; 85610; 85730; 87040; 87077; 87086; 87186; 93005; 96374; 97161; 99291; G0378; G8987; G8988; J0610; J0696; J3480; J7030